=== PATIENT | male | born 1940 | race Caucasian/White ===

== ENCOUNTER 2019-08-06 21:05 | Emergency (ER) | payer MEDICARE ==
[~2019-08-06] VITALS: Ht 177.8 cm; Wt 68.2 kg
[2019-08-06] MEDS ORDERED: propofol 10mg/ml 20ml vial IV ONE (21:50)
[2019-08-07 00:56] VITALS: BP 179/109
== END 2019-08-07 01:03 | disposition home or self-care (01) ==
LOC: ER 21:06
DX: S73.005A Unspecified dislocation of left hip, initial encounter (principal); M19.90 Unspecified osteoarthritis, unspecified site; Z72.89 Other problems related to lifestyle; W07.XXXA Fall from chair, initial encounter; Y93.89 Activity, other specified; Y92.89 Other specified places as the place of occurrence of the external cause; Y99.8 Other external cause status
CPT/HCPCS: 27250; 72170; 73502; 94760; 99285; J2704; 99284

== ENCOUNTER 2020-02-14 18:39 | Observation (INO) | payer MEDICARE ==
[~2020-02-14] VITALS: Ht 175.3 cm; Wt 57.0 kg
[2020-02-14] MEDS ORDERED: fentaNYL/PF 50MCG/1 ML 2ML syringe IV ONE (19:15)
[2020-02-14] MEDS ORDERED: diazepam inj 5 MG/ML inj. IV ONE (19:15)
[2020-02-14] MEDS ORDERED: etomidate 2mg/ml inj. IV ONE (19:15)
--- NOTE | 2020-02-14 19:15 | NUR ---
dalton returned from xray
--- NOTE | 2020-02-14 19:30 | NUR ---
dR pepe NOTIFIED OF htn NO NEW ORDERS, PATIENT ASYMPTOMATIC
--- NOTE | 2020-02-14 21:21 | NUR ---
abductor pillow in place
--- NOTE | 2020-02-14 21:58 | NUR ---
DR OLIVARES REMINDED PATIENT LIVES ALONE NO CARE OR RESOURCES AT HOME FOR ASSIST FOR THE NIGHT. RESPONSE WAS OK TO DC HOME 2 HOURS AFTER FULLY AWAKE MAY BE DC BY CAB. SUPERVIS[employer]SPAULINA RUSHING
--- NOTE | 2020-02-15 00:20 | NUR ---
patient did not pass gait walk with crutches for non weight bearing unstable gait with left hip unable to walk with no weight bearing on left leg fall risk Dr Helton notified.
[2020-02-15] MEDS ORDERED: NO HOME MEDS (00:25)
[2020-02-15] MEDS ORDERED: magnesium hydroxide 30ml (MOM) UD suspension PO PRN (01:00)
[2020-02-15] MEDS ORDERED: ondansetron/PF 4mg/2ml inj IV PRN (01:00)
[2020-02-15] MEDS ORDERED: acetaminophen 325mg tablet PO PRN (01:00)
[2020-02-15] MEDS ORDERED: mag hydrox/Alum hydrox/simeth 30ml oral suspension PO PRN (01:00)
[2020-02-15 01:47] LABS: BASOPHILS # (AUTO) 0.1 X10'3 (0-0.2); BASOPHILS % (AUTO) 0.8 % (0-1); EOSINOPHILS # (AUTO) 0.2 X10'3 (0-0.9); EOSINOPHILS % (AUTO) 2.3 % (0-6); HEMATOCRIT 41.4 % (42.0-52.0); LYMPHOCYTES # (AUTO) 1.7 X10'3 (1.1-4.8); LYMPHOCYTES % (AUTO) 16.1 % (21-51); MEAN CORPUSCULAR HGB CONC 33.9 g/dL (33.0-36.5); MEAN CORPUSCULAR VOLUME 88.6 FL (78-98); MONOCYTES # (AUTO) 0.7 X10'3 (0-0.9); NEUTROPHILS # (AUTO) 7.8 X10'3 (1.8-7.7); NEUTROPHILS % (AUTO) 73.8 % (42-75); PLATELET COUNT 228 X10'3 (140-440); RED BLOOD COUNT 4.68 X10'6 (4.70-6.10); RED CELL DISTRIBUTION WIDTH 14.2 % (11.5-14.5); WHITE BLOOD COUNT 10.6 X10'3 (4.5-11.0)
--- NOTE | 2020-02-15 01:50 | NUR ---
Patient transferred from [facility] to the bed with minimal assistance, and then the Abductor pillow was placed to prevent hip dislocation.
[2020-02-15 01:55] LABS: CHLORIDE 101 MMOL/L (99-107); POTASSIUM 3.5 MMOL/L (3.5-5.1); SODIUM 135 MMOL/L (135-145)
[2020-02-15 02:10] LABS: ALBUMIN 3.2 G/DL (3.4-5.0); ANION GAP 9 (8-16); BLOOD UREA NITROGEN 10 MG/DL (7-18); BUN/CREATININE RATIO 16.1 (5.4-32.0); CALCIUM 8.1 MG/DL (8.5-10.1); CREATININE 0.62 MG/DL (0.60-1.10); GLUCOSE 101 MG/DL (70-104); TOTAL CARBON DIOXIDE 24.6 MMOL/L (24-32); eGFR > 90 ML/MIN
[2020-02-15 02:17] VITALS: BP 182/107
[2020-02-15 06:00] VITALS: BP 139/87
--- NOTE | 2020-02-15 06:15 | NUR ---
Problems reprioritized. Patient report given, questions answered & plan of care reviewed with PAULINA Owen.
[2020-02-15] MEDS ORDERED: heparin, porcine 5000 units/ml vial SQ SCH (08:00)
[2020-02-15 10:00] VITALS: BP 149/84
--- NOTE | 2020-02-15 12:00 | NUR ---
Received discharge orders from Dr. Castro. Per Dr. Castro gave pt a "New Patient Packet" for Dr. Roldan, on [facility]. Pt states he previously had Dr. Winkler but he "went out of business," and pt would like to know what MD is taking new patients as he needs a left hip revision. Pt discharged to front of hospital to transport home via personal vehicle.
== END 2020-02-15 11:45 | disposition home or self-care (01) ==
LOC: ER 18:40 → ED HOLD 02-15 00:57 → ORTHO 4S 02-15 01:53
PROVIDERS: ADMIT Internal Medicine; ATTEND Family Medicine
DX: T84.021A Dislocation of internal left hip prosthesis, initial encounter (principal); Y79.2 Prosthetic and other implants, materials and accessory orthopedic devices associated with adverse incidents; Y93.89 Activity, other specified; Y92.89 Other specified places as the place of occurrence of the external cause
CPT/HCPCS: 36415; 73502; 80048; 85025; 87081; 94760; 94799; 96374; 96375; 97116; 97161; 99285; G0378; J3010; J3360

== ENCOUNTER 2023-09-25 14:57 | Emergency (ER) | payer MEDICARE ==
[~2023-09-25] VITALS: Ht 177.8 cm; Wt 60.5 kg
[~2023-09-25 14:57] MED LIST: NO HOME MEDS
[2023-09-25 15:15] VITALS: BP 150/86; PULSE 93; RESP 18; TEMP 97.8; O2SAT 98
[2023-09-25] MEDS: acetaminophen 325mg tablet PO ONE (16:13)
[2023-09-25] MEDS ORDERED: ACET-1025 PO (16:16)
== END 2023-09-25 16:29 | disposition home or self-care (01) ==
LOC: ER 14:57
DX: S43.402A Unspecified sprain of left shoulder joint, initial encounter (principal); S46.912A Strain of unspecified muscle, fascia and tendon at shoulder and upper arm level, left arm, initial encounter; M19.90 Unspecified osteoarthritis, unspecified site; M65.29 Calcific tendinitis, multiple sites; X58.XXXA Exposure to other specified factors, initial encounter; Y93.89 Activity, other specified; Y92.89 Other specified places as the place of occurrence of the external cause; Y99.8 Other external cause status
CPT/HCPCS: 73030; 73080; 73130; 99284; A4565